=== PATIENT | female | born 1940 | race Caucasian/White ===

== ENCOUNTER 2017-07-23 12:02 | Day surgery (SDC) | payer OTHER ==
[~2017-07-23] VITALS: Ht 167.6 cm; Wt 59.9 kg
[~2017-07-23 12:02] MED LIST: AMOXICILLIN500 MG PO; ASPIRIN EC325 MG PO; ASPIRIN81 M2 PO; ATIVAN1 MG PO; Ascorbic Acid,Ester- PO; CALCIUM 500 MG1 EACH PO; CALCIUM 600 +1 EAC4 PO; CELEBREX200 MG PO; CELECOXIB200 MG PO; COUMADIN PO; Coumadin dosing per PO; DILAUDID2 MG PO; DOCUSATE SODIU100 MG PO; ENDOCET 5-3251 EACH PO; Glucosamine/Chondroi PO; HYDROCODON-ACE1 EAC7 PO; LO-DOSE ASPIRIN81 M1 PO; LORCET 5-325 M1 EACH PO; LORTAB 5-325 M1 EACH PO; LOVENOX40 MG/0.4 SC; NEURONTIN100 MG PO; OXYCONTIN15 MG PO; PERCOCET 5/31 TABLET PO; SENNA-TIME S T1 EACH PO; SENOKOT S,PE1 TABLET PO; THERAGRAN1 TABLET PO; TYLENOL EXTRA500 MG PO; Tums PO; VITAMIN C1000 MG PO; VITAMIN C500 M1 PO; VITAMIN D1000 UNIT PO; VITAMIN D31000 UNIT PO; Vicodin,Lortab 5/500 PO; WARFARIN SODIUM4 MG PO; XANAX0.25 MG PO; [UNRECOGNIZED DRUG - OTHER] PO; [UNRECOGNIZED DRUG - OTHER] PO
== END 2017-07-23 14:20 | disposition home or self-care (01) ==
LOC: PAIN 12:02 → SDC 12:45 → PAIN 12:45
DX: M47.812 Spondylosis without myelopathy or radiculopathy, cervical region (principal); M54.2 Cervicalgia; G89.29 Other chronic pain; M54.5 Low back pain; M48.06 Spinal stenosis, lumbar region; M47.816 Spondylosis without myelopathy or radiculopathy, lumbar region; F17.210 Nicotine dependence, cigarettes, uncomplicated; Z98.1 Arthrodesis status; Z79.82 Long term (current) use of aspirin; Z86.718 Personal history of other venous thrombosis and embolism; Z87.891 Personal history of nicotine dependence
CPT/HCPCS: J1030; J3010; S0020

== ENCOUNTER 2017-09-23 12:52 | Day surgery (SDC) | payer OTHER ==
[~2017-09-23] VITALS: Ht 167.6 cm; Wt 59.0 kg
== END 2017-09-23 14:35 | disposition home or self-care (01) ==
LOC: PAIN 12:52 → SDC 14:30 → PAIN 14:35
DX: M47.812 Spondylosis without myelopathy or radiculopathy, cervical region (principal); M54.2 Cervicalgia; G89.29 Other chronic pain; M47.816 Spondylosis without myelopathy or radiculopathy, lumbar region; M48.061 Spinal stenosis, lumbar region without neurogenic claudication; Z86.718 Personal history of other venous thrombosis and embolism; Z79.82 Long term (current) use of aspirin; F17.200 Nicotine dependence, unspecified, uncomplicated
CPT/HCPCS: J1030; J2250; J3010; S0020

== ENCOUNTER 2017-09-26 12:39 | Day surgery (SDC) | payer OTHER ==
[~2017-09-26] VITALS: Ht 167.6 cm; Wt 59.8 kg
== END 2017-09-26 14:25 | disposition home or self-care (01) ==
LOC: PAIN 12:39 → SDC 13:30 → PAIN 14:25
DX: M47.812 Spondylosis without myelopathy or radiculopathy, cervical region (principal); M54.2 Cervicalgia; G89.29 Other chronic pain; M43.02 Spondylolysis, cervical region; M47.816 Spondylosis without myelopathy or radiculopathy, lumbar region; M48.061 Spinal stenosis, lumbar region without neurogenic claudication; Z79.891 Long term (current) use of opiate analgesic; Z79.82 Long term (current) use of aspirin; F17.200 Nicotine dependence, unspecified, uncomplicated
CPT/HCPCS: J1030; J2250; J3010; S0020

== ENCOUNTER 2017-12-13 18:43 | Emergency (ER) | payer OTHER ==
[~2017-12-13] VITALS: Ht 167.6 cm; Wt 56.9 kg
[2017-12-13 19:59] LABS: HEMATOCRIT 45.3 % (36.0-46.0); HEMOGLOBIN 15.4 G/DL (11.9-15.5); MCH 31.1 PG (29.0-34.0); MCV 91.5 FL (83-99); PLATELET COUNT 326 K/uL (156-360); RBC DIS.WIDTH-CV 14.8 % (11.8-14.6); RBC DIS.WIDTH-SD 50.3 % (39-53); RED BLOOD COUNT 4.95 M/uL (3.80-5.20); WHITE BLOOD COUNT 10.7 K/uL (4.1-10.2)
[2017-12-13 20:10] LABS: CHLORIDE 102 mEq/L (99-109); POTASSIUM 4.5 mEq/L (3.7-5.4); SODIUM 140 mEq/L (136-147)
[2017-12-13 20:11] LABS: GLUCOSE 95 mg/dL (70-99)
[2017-12-13 20:15] LABS: CREATININE 0.6 mg/dL (0.6-1.3); GFR ESTIMATE (CALCULATED) > 59 mL/min/
[2017-12-13 20:16] LABS: UREA NITROGEN (BUN) 11 mg/dL (9-23)
[2017-12-13 20:23] LABS: TROP-I INTERPRETATION NEGATIVE; TROPONIN-I < 0.01 ng/mL (0.0-0.30)
[2017-12-13 21:18] LABS: APPEARANCE CLEAR ((CLEAR)); BILIRUBIN NEGATIVE; BLOOD NEGATIVE; COLOR STRAW ((YELLOW)); GLUCOSE (STRIP) NEGATIVE; KETONES NEGATIVE; LEUKOCYTES NEGATIVE; NITRITE NEGATIVE; PROTEIN (STRIP) NEGATIVE; SPECIFIC GRAVITY 1.006 (1.000-1.030); UCUL ADDED? NO; UROBILINOGEN 0.2 MG/DL (0.2-1.0)
[2017-12-13] MEDS ORDERED: MECLIZINE HCL25 MG PO (22:41)
[2017-12-13] MEDS ORDERED: IMITREX25 MG PO (23:04)
[2017-12-13 23:14] VITALS: BP 138/81
== END 2017-12-13 23:15 | disposition home or self-care (01) ==
LOC: EME 18:43
PROVIDERS: Emergency Medicine
DX: R42 Dizziness and giddiness (principal); R51 Headache; F41.9 Anxiety disorder, unspecified; F17.200 Nicotine dependence, unspecified, uncomplicated; Z79.82 Long term (current) use of aspirin; Z87.442 Personal history of urinary calculi
CPT/HCPCS: 70496; 70498; 80048; 81003; 84484; 85027; 93005; 99281; 99285; J1200; J3030; J7030